=== PATIENT | female | born 1960 | race Caucasian/White ===

== ENCOUNTER 2016-06-16 10:53 | Emergency (ER) | payer MEDICARE, OTHER ==
[2016-06-16 11:02] VITALS: BP 116/75; PULSE 78; RESP 18; TEMP 97.4
--- NOTE | 2016-06-16 11:38 | ED ---
Upper Extremity HPI - General Chief Complaint: Extremity Injury, Upper Stated Complaint: Shoulder/Neck Pain Time Seen by Provider: 06/16/16 11:13 Source: patient, RN notes reviewed Mode of arrival: ambulatory Limitations: no limitations - History of Present Illness Initial Comments: 55-year-old female presents emergency Department chief complaint of neck and left shoulder pain. Patient states has been present last 3 weeks. Patient denies any trauma. Patient states she has increased pain when she looks up. Patient states she gets a shooting pain down into her left shoulder. Denies any weakness of her upper extremities. Denies chest pain, shortness breath, fever, chills. Denies any headache at this time. Denies any blurred vision. Patient states she has no history of chronic neck issues. She states that she did receive injections in the past from her neurologist she sees for chronic hip pain. Patient states she takes [place] 7.5 daily. Patient denies any rashes noted the region. Patient states that she does feels stiff. - Related Data Home Medications Medication Instructions Recorded Confirmed Diazepam [Valium] 5 mg PO BID 06/16/16 06/16/16 HYDROcodone/APAP 7.5-325MG [[place] 1 tab PO BID PRN 06/16/16 06/16/16 7.5-325] PARoxetine HCL [Paxil] 40 mg PO DAILY 06/16/16 06/16/16 carBAMazepine [carBAMazepine ER] 200 mg PO BID 06/16/16 06/16/16 traZODone HCL [Desyrel] 100 mg PO HS 06/16/16 06/16/16 Previous Rx's Medication Instructions Recorded methylPREDNISolone [Medrol Dose 4 mg PO DIRECTED #1 pack 06/16/16 Pack] Allergies Allergy/AdvReac Type Severity Reaction Status Date / Time No Known Allergies Allergy Verified 06/16/16 11:13 Review of Systems ROS Statement: Those systems with pertinent positive or pertinent negative responses have been documented in the HPI. ROS Other: All systems not noted in ROS Statement are negative. Past Medical History Past Medical History: Pneumonia Additional Past Medical History / Comment(s): kidney stones, History of Any Multi-Drug Resistant Organisms: None Reported Past Surgical History: Hysterectomy Additional Past Surgical History / Comment(s): fracture left foot, Past Psychological History: Anxiety, Bipolar, Depression Smoking Status: Current every day smoker Past Alcohol Use History: None Reported Past Drug Use History: Marijuana General Exam Limitations: no limitations General appearance: alert, in no apparent distress Head exam: Present: atraumatic, normocephalic, normal inspection Eye exam: Present: normal appearance, PERRL, EOMI. Absent: scleral icterus, conjunctival injection, periorbital swelling ENT exam: Present: normal exam, normal oropharynx, mucous membranes moist, TM's normal bilaterally, normal external ear exam Neck exam: Present: normal inspection, tenderness (Mild tenderness noted to left trapezius), full ROM (Pain with extension). Absent: meningismus, lymphadenopathy Respiratory exam: Present: normal lung sounds bilaterally. Absent: respiratory distress, wheezes, rales, rhonchi, stridor Cardiovascular Exam: Present: regular rate, normal rhythm, normal heart sounds. Absent: systolic murmur, diastolic murmur, rubs, gallop, clicks Extremities exam: Present: other (Left shoulder full range of motion, neurovascularly intact, nontender. Strength equal bilaterally pulses equal bilaterally rashes) Neurological exam: Present: alert, oriented X3, CN II-XII intact, reflexes normal. Absent: motor sensory deficit Course Vital Signs 06/16/16 11:00 Temperature 97.4 F L Pulse Rate 78 Respiratory 18 Rate Blood Pressure 116/75 O2 Sat by Pulse 100 Oximetry Medical Decision Making - Medical Decision Making 55-year-old female presented for 3 week history neck pain. Patient pain radiates to her left shoulder. Patient's pain is consistent with cervical radiculopathy. Patient's x-ray of the neck shows degenerative changes C6-C7 and some straightening noted consistent with muscle spasms. Patient will be discharged with Medrol Dosepak as she currently takes pain medication and Valium. Patient will follow-up with her neurologist. Return parameters were discussed. Disposition Clinical Impression: Cervical radiculopathy Disposition: HOME SELF-CARE Condition: Stable Instructions: Cervical Radiculopathy (ED) Additional Instructions: Please return to the Emergency Department if symptoms worsen or any other concerns. Prescriptions: methylPREDNISolone [Medrol Dose Pack] 4 mg PO DIRECTED #1 pack Time of Disposition: 12:11
--- NOTE | 2016-06-16 11:59 | XR ---
EXAMINATION TYPE: XR shoulder limited LT DATE OF EXAM: 06/16/2016 11:55 AM CLINICAL HISTORY: Left shoulder pain for a few days. TECHNIQUE: Two views of the left shoulder are obtained. COMPARISON: None. FINDINGS: There is no acute fracture/dislocation evident in the left shoulder. The acromioclavicula r and glenohumeral joint spaces appear within normal limits. The visualized ribs are intact and unre markable. IMPRESSION: There is no acute fracture or dislocation in the left shoulder.
--- NOTE | 2016-06-16 12:01 | XR ---
EXAMINATION TYPE: XR cervical spine comp DATE OF EXAM: 06/16/2016 11:55 AM TECHNIQUE: Frontal, lateral, oblique, and open mouth view of the cervical spine are obtained. HISTORY: Left-sided neck pain for a few days. COMPARISON: None FINDINGS: The cervical spine is visualized in its entirety from C1 thru the top of T1 level, it is s traightened in alignment without evidence of acute fracture or dislocation. The pre-vertebral soft t issue appears within normal limits. The C1-C2 articulation is within normal limits on the open mouth view. Vertebral body heights are maintained. There is mild disc space narrowing C6-C7 level with pro minent spur from the anterior inferior C6 vertebra. The oblique images are within normal limits. Over lying soft tissue is unremarkable. IMPRESSION: Straightening of cervical spine with degenerative changes C6-C7 level noted.
== END 2016-06-16 12:33 | disposition home or self-care (01) ==
LOC: EC 10:53
DX: M54.12 Radiculopathy, cervical region (principal); M25.512 Pain in left shoulder; F31.9 Bipolar disorder, unspecified; Z87.01 Personal history of pneumonia (recurrent); F17.200 Nicotine dependence, unspecified, uncomplicated; Z79.899 Other long term (current) drug therapy
CPT/HCPCS: 72050; 99283

== ENCOUNTER → 2016-11-17 | Outpatient (CLI) | payer MEDICARE, OTHER ==
--- NOTE | 2016-11-17 14:28 | XR ---
EXAMINATION TYPE: XR foot complete LT, XR ankle complete LT DATE OF EXAM: 11/17/2016 CLINICAL HISTORY: Left foot and ankle pain since fracture injury 8 years ago. TECHNIQUE: Frontal, lateral and oblique images of the left ankle and foot are obtained. COMPARISON: None. FINDINGS: There is no acute fracture/dislocation evident in the left ankle. The ankle mortise appea rs within normal limits. There is small superior calcaneal spur and tiny inferior calcaneal spur. Th e overlying soft tissue appears unremarkable. There is no acute fracture or dislocation evident in the left foot. The joint spaces in the left jose luis t are preserved. Unfused apophysis near proximal navicular bone, base of fifth metatarsal, and latera l cuboid bone are present. Overlying soft tissue is unremarkable. IMPRESSION: There is no significant finding seen to account for patient's symptoms.
== END | disposition home or self-care (01) ==
LOC: RADXRMAIN 14:03
PROVIDERS: ATTEND Physical Medicine & Rehabilitation
DX: M79.672 Pain in left foot (principal)

== ENCOUNTER → 2017-06-05 | Outpatient (CLI) | payer MEDICARE, OTHER ==
[2017-06-05 11:13] LABS: Basophils # (A) 0.1 k/uL (0-0.2); Basophils % (A) 1 %; Eosinophils # (A) 0.3 k/uL (0-0.7); Eosinophils % (A) 4 %; HCT 48.5 % (34.0-46.0); HGB 15.1 gm/dL (11.4-16.0); Lymphocytes # (A) 2.2 k/uL (1.0-4.8); Lymphocytes % (A) 35 %; MCH 29.4 pg (25.0-35.0); MCHC 31.1 g/dL (31.0-37.0); MCV 94.4 fL (80.0-100.0); Mean Platelet Volume 7.3; Monocytes # (A) 0.4 k/uL (0-1.0); Monocytes % (A) 7 %; Neutrophils # (A) 3.2 k/uL (1.3-7.7); Neutrophils % (A) 51 %; Platelet Count 288 k/uL (150-450); RBC 5.14 m/uL (3.80-5.40); RDW 13.9 % (11.5-15.5); WBC 6.2 k/uL (3.8-10.6)
[2017-06-05 11:23] LABS: ALT 43 U/L (9-52); AST 28 U/L (14-36); Alkaline Phosphatase 93 U/L (38-126); Anion Gap 8 mmol/L; Blood Urea Nitrogen 14 mg/dL (7-17); Carbamazepine (Tegretol) 6.5 ug/mL; Carbon Dioxide 30 mmol/L (22-30); Chloride 104 mmol/L (98-107); Cholesterol 323 mg/dL (<200); HDL Cholesterol 74 mg/dL (40-60); LDL Cholesterol,Calculated 213 mg/dL (0-99); Potassium 4.6 mmol/L (3.5-5.1); Sodium 142 mmol/L (137-145); Triglycerides 179 mg/dL (<150)
[2017-06-05 11:37] LABS: T4, Free (Free Thyroxine) 0.57 ng/dL (0.78-2.19)
[2017-06-05 16:58] LABS: Hemoglobin A1C 5.5 % (4.0-6.0)
== END | disposition home or self-care (01) ==
LOC: LABWHC1 10:19
PROVIDERS: ATTEND Psychiatry & Neurology Psychiatry
DX: E66.9 Obesity, unspecified (principal); R53.83 Other fatigue; F31.4 Bipolar disorder, current episode depressed, severe, without psychotic features; F41.8 Other specified anxiety disorders; Z79.899 Other long term (current) drug therapy
CPT/HCPCS: 36415; 80051; 80061; 80156; 82565; 83036; 84075; 84439; 84443; 84450; 84460; 84520; 85025

== ENCOUNTER 2017-06-26 20:05 | Emergency (ER) | payer MEDICARE, OTHER ==
[2017-06-26 20:34] VITALS: BP 131/88; PULSE 85; RESP 18; TEMP 99.7
[2017-06-26] MEDS ORDERED: DIAZEPAM 5 MG TAB PO STA (20:35)
--- NOTE | 2017-06-26 20:41 | ED ---
General Adult HPI - General Chief complaint: Recheck/Abnormal Lab/Rx Stated complaint: Palpatations Time Seen by Provider: 06/26/17 20:23 Source: patient, RN notes reviewed Mode of arrival: ambulatory Limitations: no limitations - History of Present Illness Initial comments: This is a 56-year-old female who states she did not Valium for many many years and ran out yesterday she comes in tonight complaining be very anxious to me on my exam she denies any fevers chills nausea vomiting sweats just shaking. She does have psychiatry appointment in July she states she switched insurances that she can get a specific psychiatrist she does not have an appointment however told next month she takes 5 mg 3 times a day. She denies any other complaints at this time he did complain some palpitations no overt chest pain shortness of breath however - Related Data Home Medications Medication Instructions Recorded Confirmed Diazepam [Valium] 5 mg PO DAILY PRN 06/16/16 04/20/17 PARoxetine HCL [Paxil] 40 mg PO DAILY 06/16/16 04/20/17 carBAMazepine [carBAMazepine ER] 200 mg PO BID 06/16/16 04/20/17 traZODone HCL [Desyrel] 100 mg PO HS 06/16/16 04/20/17 Cetirizine HCl [Zyrtec] 10 mg PO DAILY 04/20/17 04/20/17 HYDROcodone/APAP 10-325MG [[place] 1 tab PO BID PRN 04/20/17 04/20/17 10-325] Phentermine HCl [Adipex-P] 37.5 mg PO DAILY 04/20/17 04/20/17 Previous Rx's Medication Instructions Recorded Diazepam [Valium] 5 mg PO TID #42 tab 04/20/17 Diazepam [Valium] 5 mg PO TID #12 tab 06/26/17 Allergies Allergy/AdvReac Type Severity Reaction Status Date / Time No Known Allergies Allergy Verified 06/26/17 20:35 Review of Systems ROS Statement: Those systems with pertinent positive or pertinent negative responses have been documented in the HPI. ROS Other: All systems not noted in ROS Statement are negative. Past Medical History Past Medical History: Pneumonia Additional Past Medical History / Comment(s): kidney stones History of Any Multi-Drug Resistant Organisms: None Reported Past Surgical History: Hysterectomy Additional Past Surgical History / Comment(s): fracture left foot Past Psychological History: Anxiety, Bipolar, Depression Smoking Status: Current every day smoker Past Alcohol Use History: None Reported Past Drug Use History: Marijuana General Exam - General Exam Comments Initial Comments: This is a well-developed well-nourished awake alert oriented 3 female Limitations: no limitations General appearance: alert, in no apparent distress, anxious Head exam: Present: atraumatic, normocephalic, normal inspection Eye exam: Present: normal appearance, PERRL, EOMI. Absent: scleral icterus, conjunctival injection, periorbital swelling ENT exam: Present: normal exam, mucous membranes moist Neck exam: Present: normal inspection. Absent: tenderness, meningismus, lymphadenopathy Respiratory exam: Present: normal lung sounds bilaterally. Absent: respiratory distress, wheezes, rales, rhonchi, stridor Cardiovascular Exam: Present: regular rate, normal rhythm, normal heart sounds. Absent: systolic murmur, diastolic murmur, rubs, gallop, clicks GI/Abdominal exam: Absent: distended, tenderness, guarding, rebound, rigid Extremities exam: Present: normal inspection, full ROM, normal capillary refill. Absent: tenderness, pedal edema, joint swelling, calf tenderness Back exam: Present: full ROM Neurological exam: Present: alert, oriented X3, CN II-XII intact Psychiatric exam: Present: normal affect, anxious Skin exam: Present: warm, dry, intact, normal color. Absent: rash Course Vital Signs 06/26/17 20:25 Temperature 99.7 F H Pulse Rate 85 Respiratory 18 Rate Blood Pressure 131/88 O2 Sat by Pulse 96 Oximetry EKG Findings - EKG Results: EKG: interpreted by ERMD, sinus rhythm (Normal sinus rhythm of 84. Interval 140 QRS duration 80 QT since QTC of 360/434 st-t wave changes) Medical Decision Making - Medical Decision Making No further workup is indicated this time patient is demonstrating some evidence of withdrawal from Valium I did tell her that we cannot give her a lot of medication she'll get enough. Through the daily she is follow-up with her doctor and return when necessary Disposition Clinical Impression: Encounter for medication refill, Anxiety Disposition: HOME SELF-CARE Condition: Good Instructions: Anxiety (ED), Medicine Refill (ED) Prescriptions: Diazepam [Valium] 5 mg PO TID #12 tab Referrals: Nneka Ortiz MD [Primary Care Provider] - 1-2 days
== END 2017-06-26 20:57 | disposition home or self-care (01) ==
LOC: EC 20:05
DX: F41.9 Anxiety disorder, unspecified (principal); Z76.0 Encounter for issue of repeat prescription; R00.2 Palpitations; F31.9 Bipolar disorder, unspecified; F17.200 Nicotine dependence, unspecified, uncomplicated; Z79.899 Other long term (current) drug therapy
CPT/HCPCS: 93005; 99284

== ENCOUNTER 2017-08-18 14:20 | Emergency (ER) | payer MEDICARE, OTHER ==
[2017-08-18] MEDS ORDERED: KETOROLAC 30 MG/ML 1 ML VIAL IVP STA (15:07)
[2017-08-18] MEDS ORDERED: SODIUM CHLORIDE 0.9% 1,000 ML IV STA ×2 (15:07)
[2017-08-18] MEDS ORDERED: ORPHENADRINE 30 MG/ML 2 ML VIAL IVP STA (15:08)
--- NOTE | 2017-08-18 15:14 | ED ---
Lower Extremity Injury HPI - General Chief Complaint: Extremity Injury, Lower Stated Complaint: cannot stand up straight, back pain, leg pain Time Seen by Provider: 08/18/17 14:54 Source: patient, RN notes reviewed Mode of arrival: wheelchair Limitations: no limitations - History of Present Illness Initial Comments: This is a 56-year-old female who states she's had left SI joint area pain that radiates down her left leg for the past several days she states it's fairly severe she states it feels like some a stretching the area out she states is 9/ 10 severity she states she's been walking around on sure. Past 3 days because of the pain. She denies any specific injury or incident that may have precipitated this. 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 She denies any fevers chills sweats cough phlegm production dysuria hematuria she does state the pain seems to radiate down the leg feels like bubbles underneath her anterior lateral thigh and wrapping around to the superior aspect of the medial knee. No urinary or fecal incontinence. No loss of function to her upper or lower extremities. Patient is a smoker we did briefly discuss smoking cessation. She does smoke cigarettes. No other modifying factors at this time she does state that she was never diagnosed with heart or lung disease to this point. - Related Data Home Medications Medication Instructions Recorded Confirmed PARoxetine HCL [Paxil] 40 mg PO DAILY 06/16/16 08/18/17 carBAMazepine [carBAMazepine ER] 200 mg PO BID 06/16/16 08/18/17 traZODone HCL [Desyrel] 100 mg PO HS 06/16/16 08/18/17 Cetirizine HCl [Zyrtec] 10 mg PO DAILY 04/20/17 08/18/17 HYDROcodone/APAP 10-325MG [[place] 1 tab PO BID PRN 04/20/17 08/18/17 10-325] Atorvastatin Calcium [Lipitor] 10 mg PO HS 08/18/17 08/18/17 Previous Rx's Medication Instructions Recorded Diazepam [Valium] 5 mg PO TID #12 tab 06/26/17 Hydrocodone/Acetaminophen [[place] 1 each PO Q6HR PRN #12 tab 08/18/17 5-325] Ibuprofen 800 mg PO Q6HR PRN #20 tablet 08/18/17 methylPREDNISolone Dose Pack 4 mg PO DIRECTED #21 package 08/18/17 [Medrol Dose Pack] Allergies Allergy/AdvReac Type Severity Reaction Status Date / Time No Known Allergies Allergy Verified 08/18/17 14:48 Review of Systems ROS Statement: Those systems with pertinent positive or pertinent negative responses have been documented in the HPI. ROS Other: All systems not noted in ROS Statement are negative. Past Medical History Past Medical History: COPD, Hyperlipidemia, Pneumonia Additional Past Medical History / Comment(s): kidney stones History of Any Multi-Drug Resistant Organisms: None Reported Past Surgical History: Hysterectomy Additional Past Surgical History / Comment(s): fracture left foot Past Psychological History: Anxiety, Bipolar, Depression Smoking Status: Current every day smoker Past Alcohol Use History: None Reported Past Drug Use History: Marijuana General Exam - General Exam Comments Initial Comments: This is a well-developed well-nourished awake alert oriented 3 female Limitations: no limitations General appearance: alert, in no apparent distress Head exam: Present: atraumatic, normocephalic, normal inspection Eye exam: Present: normal appearance, PERRL, EOMI. Absent: scleral icterus, conjunctival injection, periorbital swelling ENT exam: Present: mucous membranes dry Neck exam: Present: normal inspection. Absent: tenderness, meningismus, lymphadenopathy Respiratory exam: Present: normal lung sounds bilaterally. Absent: respiratory distress, wheezes, rales, rhonchi, stridor Cardiovascular Exam: Present: regular rate, normal rhythm, normal heart sounds. Absent: systolic murmur, diastolic murmur, rubs, gallop, clicks GI/Abdominal exam: Present: soft, normal bowel sounds. Absent: distended, tenderness, guarding, rebound, rigid Extremities exam: Present: normal inspection, full ROM, normal capillary refill. Absent: tenderness, pedal edema, joint swelling, calf tenderness Back exam: Present: normal inspection, full ROM, muscle spasm, paraspinal tenderness (Tenderness palpation of the left SI joint region with some localized spasm noted. No spinous process tenderness no step-off or crepitation.). Absent: tenderness, CVA tenderness (R), CVA tenderness (L), vertebral tenderness Neurological exam: Present: alert, oriented X3, CN II-XII intact Psychiatric exam: Present: normal affect, normal mood Skin exam: Present: warm, dry, intact, normal color. Absent: rash Course Vital Signs 08/18/17 14:39 Temperature 98.5 F Pulse Rate 81 Respiratory 18 Rate Blood Pressure 128/68 O2 Sat by Pulse 95 Oximetry Medical Decision Making - Medical Decision Making I did discuss findings with the patient and her . Patient is feeling somewhat better we did have a long discussion regarding sciatica and low back pain. This isn't included exercises. She'll be placed on appropriate medication she is a follow-up with her doctor and return when necessary - Lab Data Result diagrams: 08/18/17 15:18 08/18/17 15:18 Lab Results 08/18/17 08/18/17 08/18/17 Range/Units 15:18 15:18 15:18 WBC 5.1 (3.8-10.6) k/uL RBC 4.82 (3.80-5.40) m/uL Hgb 14.7 (11.4-16.0) gm/dL Hct 41.8 (34.0-46.0) % MCV 86.7 (80.0-100.0) fL MCH 30.6 (25.0-35.0) pg MCHC 35.3 (31.0-37.0) g/dL RDW 12.0 (11.5-15.5) % Plt Count 282 (150-450) k/uL Neutrophils % 51 % Lymphocytes % 36 % Monocytes % 7 % Eosinophils % 3 % Basophils % 1 % Neutrophils # 2.6 (1.3-7.7) k/uL Lymphocytes # 1.8 (1.0-4.8) k/uL Monocytes # 0.4 (0-1.0) k/uL Eosinophils # 0.2 (0-0.7) k/uL Basophils # 0.0 (0-0.2) k/uL Sodium 141 (137-145) mmol/L Potassium 4.2 (3.5-5.1) mmol/L Chloride 103 (98-107) mmol/L Carbon Dioxide 26 (22-30) mmol/L Anion Gap 12 mmol/L BUN 15 (7-17) mg/dL Creatinine 0.60 (0.52-1.04) mg/dL Est GFR (CKD-EPI)AfAm >90 (>60 ml/min/1.73 sqM) Est GFR (CKD-EPI)NonAf >90 (>60 ml/min/1.73 sqM) Glucose 92 (74-99) mg/dL Calcium 9.3 (8.4-10.2) mg/dL Magnesium 1.9 (1.6-2.3) mg/dL Total Bilirubin 0.2 (0.2-1.3) mg/dL AST 21 (14-36) U/L ALT 27 (9-52) U/L Alkaline Phosphatase 99 (38-126) U/L Total Creatine Kinase 51 (30-135) U/L CK-MB (CK-2) 1.0 (0.0-2.4) ng/mL CK-MB (CK-2) Rel Index 2.0 Total Protein 6.8 (6.3-8.2) g/dL Albumin 4.2 (3.5-5.0) g/dL - Radiology Data Radiology results: report reviewed (I did review the imaging and report some degenerative changes noted no acute findings however.), image reviewed Disposition Clinical Impression: Sciatica, Sacroiliitis Disposition: HOME SELF-CARE Condition: Good Instructions: Lower Back Exercises (ED), Sciatica (ED), Sacroiliitis (ED) Prescriptions: Hydrocodone/Acetaminophen [[place] 5-325] 1 each PO Q6HR PRN #12 tab PRN Reason: Pain Ibuprofen 800 mg PO Q6HR PRN #20 tablet PRN Reason: Pain methylPREDNISolone Dose Pack [Medrol Dose Pack] 4 mg PO DIRECTED #21 package Referrals: Nneka Ortiz MD [Primary Care Provider] - 1-2 days
[2017-08-18 15:29] LABS: Basophils % (A) 1 %; Eosinophils # (A) 0.2 k/uL (0-0.7); Eosinophils % (A) 3 %; HCT 41.8 % (34.0-46.0); HGB 14.7 gm/dL (11.4-16.0); Lymphocytes # (A) 1.8 k/uL (1.0-4.8); Lymphocytes % (A) 36 %; MCH 30.6 pg (25.0-35.0); MCHC 35.3 g/dL (31.0-37.0); MCV 86.7 fL (80.0-100.0); Mean Platelet Volume 6.8; Monocytes # (A) 0.4 k/uL (0-1.0); Monocytes % (A) 7 %; Neutrophils # (A) 2.6 k/uL (1.3-7.7); Neutrophils % (A) 51 %; Platelet Count 282 k/uL (150-450); RBC 4.82 m/uL (3.80-5.40); WBC 5.1 k/uL (3.8-10.6)
[2017-08-18 15:40] LABS: ALT 27 U/L (9-52); AST 21 U/L (14-36); Albumin 4.2 g/dL (3.5-5.0); Alkaline Phosphatase 99 U/L (38-126); Anion Gap 12 mmol/L; Blood Urea Nitrogen 15 mg/dL (7-17); Calcium 9.3 mg/dL (8.4-10.2); Carbon Dioxide 26 mmol/L (22-30); Chloride 103 mmol/L (98-107); Glucose 92 mg/dL (74-99); Magnesium 1.9 mg/dL (1.6-2.3); Potassium 4.2 mmol/L (3.5-5.1); Sodium 141 mmol/L (137-145); Total Bilirubin 0.2 mg/dL (0.2-1.3); Total Protein 6.8 g/dL (6.3-8.2)
--- NOTE | 2017-08-18 15:40 | XR ---
EXAMINATION TYPE: XR lumbosacral spine min 4V DATE OF EXAM: 08/18/2017 CLINICAL HISTORY: pain COMPARISON: NONE TECHNIQUE: Frontal, lateral, and oblique images of the lumbar spine are obtained. FINDINGS: There are 5 lumbar type vertebral bodies identified. The lumbar spine shows satisfactory alignment without evidence of acute fracture or dislocation. Vertebral body heights are within normal limits. Disc spaces are well preserved. The overlying soft tissue appears unremarkable. IMPRESSION: No acute fracture or dislocation is seen in the lumbar spine.ICD 10 NO FRACTURE, INITIAL EVALUATION
[2017-08-18] MEDS ORDERED: methylPREDNISolone SOD SUCCI 125 MG/2 ML VIAL IV STA (17:23)
[2017-08-18 17:51] VITALS: BP 109/57; PULSE 68; RESP 16
[2017-08-18 18:00] VITALS: TEMP 98.2
== END 2017-08-18 17:55 | disposition home or self-care (01) ==
LOC: EC 14:20
DX: M46.1 Sacroiliitis, not elsewhere classified (principal); M54.32 Sciatica, left side; E78.5 Hyperlipidemia, unspecified; F31.9 Bipolar disorder, unspecified; F41.9 Anxiety disorder, unspecified; F17.210 Nicotine dependence, cigarettes, uncomplicated; Z79.899 Other long term (current) drug therapy
CPT/HCPCS: 99283; 96374; 96375 ×2; 96361 ×2; 36415; 80053; 82550; 82553; 83735; 85025; 72110; J2360; J2930; J1885

== ENCOUNTER 2018-04-16 07:56 | Emergency (ER) | payer MEDICARE, OTHER ==
[2018-04-16 08:02] VITALS: BP 146/78; PULSE 78; RESP 18; TEMP 97.9
[2018-04-16] MEDS ORDERED: KETOROLAC 60 MG/2 ML VIAL IM STA (08:11)
--- NOTE | 2018-04-16 08:16 | ED ---
General Adult HPI - General Chief complaint: Extremity Injury, Upper Stated complaint: lt hand numbness Time Seen by Provider: 04/16/18 08:00 Source: patient, RN notes reviewed Mode of arrival: ambulatory Limitations: no limitations - History of Present Illness Initial comments: This is a 57-year-old female who presents emergency Department complaining of 3 months of left arm pain and left hand tingling. When I asked the patient if her hand was numb because that is how the nurse's note was documented she says she can feel everything normally but her hand is tingly when she wakes up in the morning as if it is asleep. Patient states the symptoms have worsened over the last 2 weeks. Patient states she always wakes up with some tingling in her hand and pain in her arm but after she takes her [place] the symptoms resolved and she is able to function fully she does play guitar still once the pain goes away. Patient states she has no neck pain. Patient states she has already been seen at our hospital as well as [facility] and they x-rayed her and found no broken bones. Patient states she's had no other injury since the last fall. Patient states she just came in today was and wondering if she can get a anti- inflammatory shot. Patient denies any headache patient denies any actual numbness or any weakness after she wakes up. Patient states every morning since she has been injured she has woken up with some degree of these symptoms. Patient states every day they resolve and she's finding the rest of the day. - Related Data Home Medications Medication Instructions Recorded Confirmed PARoxetine HCL [Paxil] 40 mg PO DAILY 06/16/16 08/18/17 carBAMazepine [carBAMazepine ER] 200 mg PO BID 06/16/16 08/18/17 traZODone HCL [Desyrel] 100 mg PO HS 06/16/16 08/18/17 Cetirizine HCl [Zyrtec] 10 mg PO DAILY 04/20/17 08/18/17 HYDROcodone/APAP 10-325MG [[place] 1 tab PO BID PRN 04/20/17 08/18/17 10-325] Atorvastatin Calcium [Lipitor] 10 mg PO HS 08/18/17 08/18/17 Previous Rx's Medication Instructions Recorded Diazepam [Valium] 5 mg PO TID #12 tab 06/26/17 Hydrocodone/Acetaminophen [[place] 1 each PO Q6HR PRN #12 tab 08/18/17 5-325] Ibuprofen 800 mg PO Q6HR PRN #20 tablet 08/18/17 methylPREDNISolone Dose Pack 4 mg PO DIRECTED #21 package 08/18/17 [Medrol Dose Pack] Allergies Allergy/AdvReac Type Severity Reaction Status Date / Time amoxicillin [From Augmentin] Allergy Unknown Verified 04/16/18 07:58 clavulanic acid Allergy Unknown Verified 04/16/18 07:58 [From Augmentin] Review of Systems ROS Statement: Those systems with pertinent positive or pertinent negative responses have been documented in the HPI. ROS Other: All systems not noted in ROS Statement are negative. Past Medical History Past Medical History: COPD, Hyperlipidemia, Pneumonia Additional Past Medical History / Comment(s): kidney stones History of Any Multi-Drug Resistant Organisms: None Reported Past Surgical History: Hysterectomy Additional Past Surgical History / Comment(s): fracture left foot Past Psychological History: Anxiety, Bipolar, Depression Smoking Status: Current every day smoker Past Alcohol Use History: None Reported Past Drug Use History: Marijuana General Exam - General Exam Comments Initial Comments: GENERAL: Patient is well-developed and well-nourished. Patient is nontoxic and well- hydrated and is in no acute distress. ENT: Neck is soft and supple. No significant lymphadenopathy is noted. Neck has full range of motion without eliciting any pain. EYES: The sclera were anicteric and conjunctiva were pink and moist. Extraocular movements were intact and pupils were equal round and reactive to light. Eyelids were unremarkable. PULMONARY: Unlabored respirations. Good breath sounds bilaterally. No audible rales rhonchi or wheezing was noted. CARDIOVASCULAR: There is a regular rate and rhythm without any murmurs gallops or rubs. SKIN: Skin is clear with no lesions or rashes and otherwise unremarkable. NEUROLOGIC: Patient is alert and oriented x3. Cranial nerves II through XII are grossly intact. Motor and sensory are also intact. Patient has no objective deficit at this time. MUSCULOSKELETAL: Normal extremities with adequate strength and full range of motion. No lower extremity swelling or edema. No calf tenderness. PSYCHIATRIC: Normal psychiatric evaluation. Limitations: no limitations Course Vital Signs 04/16/18 07:58 Temperature 97.9 F Pulse Rate 78 Respiratory 18 Rate Blood Pressure 146/78 O2 Sat by Pulse 100 Oximetry Medical Decision Making - Medical Decision Making Patient states she has a neurologist appointment on the but she is going to call today to try to make it sooner. Disposition Clinical Impression: Arm pain, chronic Disposition: HOME SELF-CARE Condition: Good Additional Instructions: Patient should follow-up with her neurologist as soon as possible. Is patient prescribed a controlled substance at d/c from ED?: No Referrals: Nneka Ortiz MD [Primary Care Provider] - 1-2 days Time of Disposition: 08:15
== END 2018-04-16 08:50 | disposition home or self-care (01) ==
LOC: EC 07:56
DX: G89.29 Other chronic pain (principal); M79.602 Pain in left arm; R20.0 Anesthesia of skin; R20.2 Paresthesia of skin; E78.5 Hyperlipidemia, unspecified; F41.9 Anxiety disorder, unspecified; F32.9 Major depressive disorder, single episode, unspecified; F17.200 Nicotine dependence, unspecified, uncomplicated; Z79.899 Other long term (current) drug therapy; Z88.0 Allergy status to penicillin
CPT/HCPCS: 99283; 96372; J1885

== ENCOUNTER → 2018-08-23 | Outpatient (CLI) | payer MEDICARE, OTHER ==
--- NOTE | 2018-08-23 12:14 | MR ---
EXAMINATION TYPE: MR shoulder LT wo con DATE OF EXAM: 08/23/2018 COMPARISON: Outside left shoulder x-ray August 10, 2018. HISTORY: Pain in left shoulder per order. Constant pain causing numbness in hands for 5 months per pa tient. TECHNIQUE: Multiplanar, multisequence imaging of the left shoulder is performed without contrast. FINDINGS: Rotator Cuff: Distal supraspinatus and infraspinatus tendons are intact. Distal subscapularis tendons are not well visualized but presumed intact. Rotator cuff muscle bulk is preserved. Acromioclavicular Joint: Moderate to severe narrowing with moderate capsular hypertrophy and spurring causing loss of underlying fat plane. Distal acromion morphology is unremarkable. Glenohumeral Joint: Mild narrowing with small to moderate glenohumeral joint effusion. No significant spurring. Labrum: Superior labrum shows blunting and increased signal coronal image 13 consistent with degenera tive tear. Biceps Tendon: The long head of biceps is in normal location within bicipital groove. Surrounding flu id signal is present axial image 10. Intracapsular portion shows central increased signal seen best s agittal images 10 through 17. Bone marrow signal: Some heterogeneous increased T2 signal acromioclavicular joint is noted. Other: No additional significant abnormality is appreciated. IMPRESSION: 1. No rotator cuff tear. 2. High-grade partial tear/tendinosis intracapsular portion of the long head of biceps tendon. There is focal moderate Tenosynovitis of the proximal extracapsular portion. 3. Moderate to advanced AC joint arthropathy with evidence of underlying impingement and acute inflam mation, correlate clinically.
== END | disposition home or self-care (01) ==
LOC: RADMRIMAIN 10:49
PROVIDERS: ATTEND Orthopaedic Surgery
DX: M19.012 Primary osteoarthritis, left shoulder (principal); S46.112A Strain of muscle, fascia and tendon of long head of biceps, left arm, initial encounter; M65.9 Synovitis and tenosynovitis, unspecified

== ENCOUNTER → 2019-01-03 | Outpatient (CLI) | payer MEDICARE, OTHER ==
[2019-01-03 13:09] VITALS: BP 131/71; PULSE 85; RESP 18
--- NOTE | 2019-01-03 14:22 | P.PAINCN ---
History of Present Illness - Reason for Consult Consult date: 01/03/19 - History of Present Illness Stumps and is a 58-year-old female who presents to our clinic with left shoulder pain primarily. She states that 80% of her pain is in her left shoulder in 20% of her pain is in the right shoulder. This started around 4 months ago, she has not had any major traumas since then, however she does remember a fall which may have precipitated her injury. She states that her shoulder pain is worse in the morning it's better after she takes her medications. She does have some morning stiffness, she has not seen a dairy manufacturing technologist. In terms of her pain sometimes pain radiates down her shoulders into the bilateral fingertips. She is not have had a cervical MRI. She does play the guitar which worsens her pain. She does have a left shoulder MRI did not done which showed no rotator cuff tear on 08/23/2018. She is prescribed opiates and Valium by an outside clinic, we are not writing her medications. Past Medical History Past Medical History: COPD, Hyperlipidemia, Musculoskeletal Disorder, Osteoarthritis (OA), Pneumonia Additional Past Medical History / Comment(s): kidney stones History of Any Multi-Drug Resistant Organisms: None Reported Past Surgical History: Hysterectomy Additional Past Surgical History / Comment(s): fracture left foot Past Anesthesia/Blood Transfusion Reactions: No Reported Reaction Smoking Status: Current every day smoker Medications and Allergies Home Medications Medication Instructions Recorded Confirmed Type PARoxetine HCL [Paxil] 40 mg PO DAILY 06/16/16 01/03/19 History carBAMazepine [carBAMazepine ER] 200 mg PO BID 06/16/16 01/03/19 History traZODone HCL [Desyrel] 100 mg PO HS PRN 06/16/16 01/03/19 History Atorvastatin Calcium [Lipitor] 10 mg PO HS 08/18/17 01/03/19 History Diazepam [Valium] 5 mg PO DAILY 04/16/18 01/03/19 History HYDROcodone/APAP 10-325MG [Renovo 1 tab PO QID 12/06/18 01/03/19 History 10-325] Loratadine [Claritin] 10 mg PO DAILY 12/06/18 01/03/19 History Meclizine [Antivert] 25 mg PO BID PRN 12/06/18 01/03/19 History Ezetimibe/Simvastatin 1 tab PO HS 01/03/19 01/03/19 History [Ezetimibe-Simvastatin 10-40 mg] Allergies Allergy/AdvReac Type Severity Reaction Status Date / Time amoxicillin [From Augmentin] Allergy Unknown Verified 01/03/19 13:01 clavulanic acid Allergy Unknown Verified 01/03/19 13:01 [From Augmentin] Physical Exam Vitals: Vital Signs Pulse Resp BP Pulse Ox 01/03/19 13:06 85 18 131/71 97 Intake and Output 01/02/19 01/03/19 01/03/19 22:59 06:59 14:59 Other: Weight 58.967 kg Vital Signs: Reviewed in EMR GENERAL: Well appearing, in no acute distress, PSYCH: Mood and affect is appropriate. Awake, alert, and oriented SKIN: Skin color, texture, turgor normal, no rashes or lesions HEENT: Normocephalic, atraumatic. EOM intact CV: No pedal edema RESP: Respirations are unlabored, no audible wheezing GI: Abdomen non-distended MUSCULOSKELETAL: Full strength in upper extremities bilaterally. Neer's caulking's and empty can tests were negative. She did have multiple trigger points in the trapezius and supraspinatus areas. Neck: Some tenderness to palpation over cervical paraspinals. . No pain with neck flexion, extension, or lateral flexion. No obvious deformity or signs of trauma. Normal cervical lordotic curve and normal cervical spine range of motion Extremities: Peripheral joint ROM is full and pain free without obvious instability or laxity in all four extremities. No edema or skin discolorations noted. Gait: Gait is anantalgic NEUR: Bilateral upper and lower extremity coordination and muscle stretch reflexes are physiologic and symmetric. No loss of sensation is noted. Cranial nerves are grossly intact. Results Comments: MRI of her left shoulder from 08/23/2018 reviewed: There is no rotator cuff tear Assessment and Plan Assessment: Assessment: 1. Myofascial pain in the trapezius and supraspinatus area 2. Potential cervical radicular pain 3. Morning stiffness which has not been investigated. This is most likely related to her opiate use. As she just cannot take doses while she is sleeping her pain is worse in the morning. However if this continues to be in an issue would consider rheumatology consult. 4. Chronic opiate use Plan: 1. Explanation: Opioid and psychological risk scores were reviewed. Diagnoses, prognoses, and multiple treatment options including but not limited to physical therapy, interventional therapies, adjuvant medical therapies, narcotic medication therapies, and surgery were discussed with the patient and all questions were answered to the patient's satisfaction. 2. Opioid agreement: None 3. Counseling: The patient was instructed on the importance of visual therapy and stretching 4. Procedures: This point we will pursue a trigger point injections, given an element of myofascial pain. Given that she has symptoms that radiate down to the bilateral fingertips there is a possibility that she does have some cervical radicular pain. However we'll deferred cervical epidural until she has a cervical MRI completed. 5. Consultations: She was given a referral for physical therapy. Can consider rheumatology consult in the future. 6. Investigations: Cervical MRI was ordered 7. Medications: When necessary not managing her opiates 8. Disposition: Were trigger point injections in the cervical paraspinals, trapezius, and supraspinatus areas , PQRS Measure Charge Sheet PQRS Narrative: Smoking Status Current every day smoker Blood Pressure 131/71 Pain Intensity [Bilateral 8 Shoulder] Scale Used Numeric (1 - 10) Hx Alcohol Use (MH) No Home Medications: Ambulatory Orders PARoxetine HCL [Paxil] 40 mg PO DAILY 06/16/16 carBAMazepine [carBAMazepine ER] 200 mg PO BID 06/16/16 traZODone HCL [Desyrel] 100 mg PO HS PRN 06/16/16 Atorvastatin Calcium [Lipitor] 10 mg PO HS 08/18/17 Diazepam [Valium] 5 mg PO DAILY 04/16/18 HYDROcodone/APAP 10-325MG [Renovo 10-325] 1 tab PO QID 12/06/18 Loratadine [Claritin] 10 mg PO DAILY 12/06/18 Meclizine [Antivert] 25 mg PO BID PRN 12/06/18 Ezetimibe/Simvastatin [Ezetimibe-Simvastatin 10-40 mg] 1 tab PO HS 01/03/19
== END | disposition home or self-care (01) ==
LOC: PNWHC3 12:55
PROVIDERS: ATTEND Student in an Organized Health Care Education/Training Program
DX: M79.18 Myalgia, other site (principal); M54.2 Cervicalgia; F17.200 Nicotine dependence, unspecified, uncomplicated; Z79.891 Long term (current) use of opiate analgesic; Z79.899 Other long term (current) drug therapy; Z88.0 Allergy status to penicillin
CPT/HCPCS: 99211

== ENCOUNTER 2019-01-15 07:49 | Day surgery (SDC) | payer MEDICARE, OTHER ==
[2019-01-10 15:06] VITALS: BMI 23.0
[~2019-01-15 07:49] MED LIST: LACTATED RINGERS 1,000 ML IV SCH
[2019-01-15 08:04] VITALS: RESP 16; TEMP 97.6
--- NOTE | 2019-01-15 08:53 | P.PCN ---
Date of Procedure: 01/15/19 Description of Procedure: PROCEDURE: Left intraarticular shoulder joint injection with ultrasound PREOPERATIVE DIAGNOSIS: Left shoulder osteoarthritis. POSTOPERATIVE DIAGNOSIS: Left shoulder osteoarthritis. SURGEON: Dio Vazquez MD EBL: None. COMPLICATIONS: None. IV FLUIDS: 100 ml of Normal Saline PROCEDURE INDICATION: Left shoulder pain secondary to osteoarthritis. PROCEDURE DESCRIPTION: The patient was seen and identified in the preoperative area. Risks, benefits, complications, and alternatives were discussed with the patient. The patient agreed to proceed with the procedure and signed the consent. The patient was placed in the prone position on the procedure table and the left shoulder was prepped and draped in the usual sterile fashion. We used sterile gloves for the procedure. The medial joint space was identified by ultrasound. Block solution was prepared with 40 mg of Kenalog in 9 mL of 0.5% ropivacaine preservative-free. A 25-gauge needle was advanced through the aforementioned site into the intraarticular space, and after negative aspiration, 5 mL of block solution was injected. Skin was cleansed, and bandage was applied. DISPOSITION / PLANS: The patient was taken back to recovery room in a stable position. . Patient was discharged from the recovery room, accompanied by an adult, after meeting discharge criteria. Home discharge instructions were given to the patient. The patient was reexamined prior to discharge. The patient will schedule a follow up visit in the clinic in 2-4 weeks. Description of procedure: Trigger point injection of left trapezius and supraspinatus muscles under ultrasound guidance Preoperative Diagnosis: myofascial pain syndrome of supraspinatus and trapezius muscles Postoperative diagnosis: Same Surgeon: Dio Vazquez MD Indications for procedure: This is a 58-year-old patient with myofascial pain and palpable trigger points in trapezius and supraspinatus muscles. The patient consents for an injection after an explanation of risks including but not limited to bleeding and inf ection, benefits, and alternatives and the patient has signed a consent form indicating understanding of all of them. Description of procedure: After informed consent was obtained the patient's back was sterilely prepped in the usual fashion with ChloraPrep. Trapezius and supraspinatus trigger points were identified via palpation and also with the use of ultrasound guidance. Each trigger point was injected with a 25-gauge half inch needle, a solution consisting of 20 mg of Kenalog and 4 ML's of 0.5% ropivacaine. Needle was directed under ultrasound guidance in plain to the muscle plane, after negative aspiration 1 mL was injected with adequate spread under ultrasound. The patient's vital signs were stable afterwards and the procedure was tolerated well. Patient was discharged home with follow-up instructions.
[2019-01-15 08:54] VITALS: BP 107/70; PULSE 64
== END 2019-01-15 08:58 | disposition home or self-care (01) ==
LOC: ORPAIN 07:49
PROVIDERS: ATTEND Anesthesiology
DX: M19.012 Primary osteoarthritis, left shoulder (principal); M79.18 Myalgia, other site
CPT/HCPCS: 20611; 20552; J3301; 20553

== ENCOUNTER → 2019-01-28 | Outpatient (CLI) | payer MEDICARE, OTHER ==
--- NOTE | 2019-01-28 21:40 | MR ---
EXAMINATION TYPE: MR cervical spine wo con DATE OF EXAM: 01/28/2019 COMPARISON: None HISTORY: Left shoulder and arm pain, left hand numbness TECHNIQUE: Multiplanar, multisequence images of the cervical spine were acquired. Cervical vertebra have normal spacing and alignment. There is a small posterior minimal disc bulge at C5-6 C6-7 without encroachment on the spinal canal. There is mild anterior disc herniation at C6-7. There is no cervical paraspinal mass. Posterior elements are intact. Cervical spinal cord has normal signal pattern. There is no edema. Brainstem appears normal. There is no evidence of cervical spinal stenosis. There is no sign of any neural foraminal impingement. IMPRESSION: Minor degenerative disc changes at C5-6 C6-7 no cervical spinal stenosis. No fracture.
== END | disposition home or self-care (01) ==
LOC: RADMRIMAIN 20:00
PROVIDERS: ATTEND Student in an Organized Health Care Education/Training Program
DX: M47.812 Spondylosis without myelopathy or radiculopathy, cervical region (principal); M25.512 Pain in left shoulder
CPT/HCPCS: 72141

== ENCOUNTER → 2019-02-12 | Outpatient (CLI) | payer MEDICARE, OTHER ==
[2019-02-12 12:44] VITALS: BP 119/70; PULSE 80; RESP 18
--- NOTE | 2019-02-12 15:09 | P.PAINPG ---
Subjective Progress Note Date: 02/12/19 Mrs. Solorio is a 58-year-old female with myofascial pain in the left shoulder area. She presents for follow-up a month after her left trapezius, cervical paraspinal, and supraspinatus trigger point injection along with a shoulder injection with steroid. She states she had excellent pain relief, furthermore the tingling even down to her fingertips improved however after playing the guitar pain returned yesterday. Thus she is interested in another procedure. Her cervical MRI was reviewed today, which did not show any obvious areas which would cause cervical radicular pain. Otherwise she continues to be prescribed opiates and benzodiazepines from an outside clinic. Objective - Vital Signs Vital signs: Vital Signs Temp Pulse 80 02/12/19 12:39 Resp 18 02/12/19 12:39 BP 119/70 02/12/19 12:39 Pulse Ox 98 02/12/19 12:39 - Exam Vital Signs: Reviewed in EMR GENERAL: Well appearing, in no acute distress, PSYCH: Mood and affect is appropriate. Awake, alert, and oriented SKIN: Skin color, texture, turgor normal, no rashes or lesions HEENT: Normocephalic, atraumatic. EOM intact CV: No pedal edema RESP: Respirations are unlabored, no audible wheezing GI: Abdomen non-distended MUSCULOSKELETAL: Bilateral upper and lower extremity strength is normal and symmetric. No atrophy or tone abnormalities are noted. Neck: She does have pain to palpation in the left cervical paraspinal, trapezius, supraspinatus areas. Both active and passive range of motion with her left shoulder is painful for Gait: Gait is anantalgic NEUR: No loss of sensation is noted. Cranial nerves are grossly intact. Assessment and Plan Assessment: Assessment: 1. Left shoulder myofascial pain 2. Chronic opiate and benzodiazepine use 3. Left shoulder pain Plan: 1. Explanation: I explained to her that she received a fair amount of steroids, the last procedure she received 60 mg of Kenalog. Thus I would not want to perform a procedure on her right away, my preference would be to wait another 2 months. However she would like to have the procedure sooner, thus we will schedule the procedure to 4 weeks. She is worried about the weight gain with steroids. 2. Opioid agreement: None 3. Counseling: She was instructed to stay active 4. Procedures: Repeat left cervical paraspinal, supraspinatus, trapezius trigger point injections, left shoulder injection 5. Consultations: None 6. Investigations: Cervical MRI reviewed today 7. Medications: We are not writing her medications 8. Disposition: Procedure in 4 weeks , PQRS Measure Charge Sheet Measure #226: Tobacco Use: Screen & Cessation Intervention: Pt screened for tobacco use AND intervention given Measure #111: Pneumonia Vaccination: Pneumococcal vaccine NOT administered or previously given Measure #47: Advance Care Plan: Advance care planning discussed & documented, pt chose/unable to give Measure #412: Opioid Treatment Agreement: No documentation of signed opioid tr eatment agreement Measure #408: Opioid Therapy Follow-up Evaluation: Patient had NO f/u eval minimum every 3 months during opioid therapy Measure #131: Pain Assessment & Follow-up: Pain positive & plan documented, Follow-up scheduled Measure #431: Unhealthy Alcohol Use Preventative Care & Scrn: Patient not identified as an unhealthy alcohol user PQRS Narrative: Smoking Status Current every day smoker Blood Pressure 119/70 Pain Intensity [Lower Back] 5 Pain Intensity [Left Shoulder] 6 Scale Used Numeric (1 - 10) Hx Alcohol Use (MH) No Home Medications: Ambulatory Orders PARoxetine HCL [Paxil] 40 mg PO DAILY 06/16/16 carBAMazepine [carBAMazepine ER] 200 mg PO BID 06/16/16 traZODone HCL [Desyrel] 100 mg PO HS PRN 06/16/16 Diazepam [Valium] 5 mg PO DAILY 04/16/18 HYDROcodone/APAP 10-325MG [[place]erson 10-325] 1 tab PO QID 12/06/18 Loratadine [Claritin] 10 mg PO DAILY 12/06/18 Meclizine [Antivert] 25 mg PO BID PRN 12/06/18 Ezetimibe/Simvastatin [Ezetimibe-Simvastatin 10-40 mg] 1 tab PO HS 01/03/19 Controlled Substance Measures - Controlled Substance Measures Is patient prescribed a controlled substance at discharge?: No
== END ==
LOC: PNWHC3 12:14
PROVIDERS: ATTEND Student in an Organized Health Care Education/Training Program
DX: M79.18 Myalgia, other site (principal); M25.512 Pain in left shoulder; F17.200 Nicotine dependence, unspecified, uncomplicated; Z79.899 Other long term (current) drug therapy; Z79.891 Long term (current) use of opiate analgesic
CPT/HCPCS: 99211

== ENCOUNTER 2019-03-12 08:28 | Day surgery (SDC) | payer MEDICARE, OTHER ==
[2019-03-08 13:26] VITALS: BMI 22.1
[2019-03-12 08:58] VITALS: TEMP 97.3
--- NOTE | 2019-03-12 09:39 | P.PCN ---
Date of Procedure: 03/12/19 Procedure(s) Performed: Procedure=1- left shoulder joints steroid injection under fluoroscopy guidance (fluoroscopy image stored on file in the radiology Department ) 2-trigger point injection on the left side trapezius muscle and left paraspinal muscles total of 3 trigger point injected Preoperative diagnosis= 1-left shoulder arthralgia. 2-myofascial pain syndrome left side trapezius and paraspinal muscles Postoperative diagnosis= same as the preoperative diagnosis Complication = none Condition= stable Anesthesia= none. Indication for the procedure= patient complaining of left side neck and left shoulder pain , she failed conservative treatment Description of the procedure= procedure risk and benefits discussed with the patient, including but not limited, risk of infection and bleeding, and ALLERGIC reaction to the medication and not complete pain relief and patient agreed with the preceding patient taken to the operating room, placed in prone position or standard monitors applied to the patient then after induction of anesthesia back prepped with chlorhexidine 3 times , Then under strict sterile technique, first I did the left shoulder joint the which was identified under fluoroscopy guidance been local infiltration of the skin and subcu interstitial with lidocaine 1% then 22-gauge Quincke Needle advanced slowly under fluoroscopy and placed in the left shoulder joint needle placement confirmed with AP and oblique and lateral view and after appropriate needle placement confirmed with the injection of Isovue 200 one mL showed that intra-articular ,and after negative aspiration, or heme , then Ropivacaine 0.5% 4 mL, and 40 mg of Depo-Medrol mixed together and injected in the right sacroiliac joint after negative aspiration patient tolerated the procedure well without any complication. Then the trigger point which was identified in the preop holding area each on the trigger point injected with ropivacaine 0.5% 2 mL injected after negative aspiration and there was no paresthesia during the injection using 25-gauge needle, total of 3 trigger point injected on the left side trapezius muscles on the left side paraspinal muscles, tolerated the procedure well without any complications
[2019-03-12 09:42] VITALS: RESP 16
[2019-03-12 09:52] VITALS: BP 103/57; PULSE 68
--- NOTE | 2019-03-12 09:53 | FL ---
Fluoroscopy HISTORY: Pain 1 seconds fluoroscopy time supplied to the referring clinician. 1 intraoperative C-arm images docume nt the procedure. See dictated report from anesthesia.
== END 2019-03-12 10:10 | disposition home or self-care (01) ==
LOC: ORPAIN 08:28
PROVIDERS: ATTEND Specialist
DX: M79.18 Myalgia, other site (principal); M25.512 Pain in left shoulder; Z88.0 Allergy status to penicillin; I10 Essential (primary) hypertension; J44.9 Chronic obstructive pulmonary disease, unspecified; Z90.710 Acquired absence of both cervix and uterus
CPT/HCPCS: 20553; 20610; J1030; Q9966

== ENCOUNTER → 2019-04-16 | Outpatient (CLI) | payer MEDICARE, OTHER ==
[2019-04-16 14:33] VITALS: BP 115/75; PULSE 86; RESP 16
--- NOTE | 2019-04-17 14:55 | P.PN ---
Subjective Progress Note Date: 04/16/19 This is a follow-up visit for this 58-year-old female with myofascial pain in the left side neck and left shoulder pain area. She presents for follow-up a month after her left trapezius, cervical paraspinal, and supraspinatus trigger point injection along with a shoulder injection with steroid. She states she had excellent pain relief, furthermore the tingling even down to her fingertips improved however after playing the guitar pain returned yesterday. Thus she is interested in another procedure. Her cervical MRI was reviewed today, which did not show any obvious areas which would cause cervical radicular pain. Otherwise she continues to be prescribed opiates and benzodiazepines from an outside clinic. Objective - Vital Signs Vital signs: Vital Signs Temp Pulse 86 04/16/19 14:18 Resp 16 04/16/19 14:18 BP 115/75 04/16/19 14:18 Pulse Ox 100 04/16/19 14:18 Intake & Output 04/16/19 04/17/19 04/17/19 18:59 06:59 18:59 Weight 58.967 kg - Exam Physical Examinations : -Constitutiona : Cooperative , not in acute distress . -HEENT : nech : supple , no Lymphadenopathy , normal thyroid size . : eyes : no ptosis , no icterus, no photophobia . : ENT : normal of hearing , normal oropharynx , no Thrush . - Respiratory : Chest clear to auscultations Bilaterally , no wheezing , no Rhonchi . - Cardiovascula : regular rate and rhythem , S1 , S2 , no S3 , no S4. - Gastrointestina : abdomen soft no tenderness , bowel sounds , no organomegally . - Genitourinary : Defferred . - neurologic : Cranial nerve II to XII intact , no focal neurological deffecit . -psychatric : alert , oriented X 3 , appropriate affect , intact judgment and insight . -Lymphatic : no Lymphadenopathy . - musculoskeltal : Cervical Spine motor stregnth in the deltoid and biceps, normal right side , normal Left side motor stregnth biceps and the wrist extensors normal right side ,normal left side . motor stregnth in the triceps muscle . normal Right side , normal Left side deep tendon reflexes normal at the biceps , normal at Brachioradialis , normal at triceps. Multiple trigger points identified on the left side suprascapular and infrascapular area, Multiple trigger point identified on the left side shoulder blade area and thoracic paravertebral muscles on the left side Lumber spine moter stegnth lower extremities ,thigh and legs 5/5 Right side , 5/5 Left side Assessment and Plan Plan: Assessment and plan=1 myofascial pain syndrome left side supra scapular, and infrascapular area, and shoulder blade area and thoracic paraspinal muscles on the left side, patient could benefit from repeat trigger point injections at the area mentioned above, also patient could benefit from muscle relaxant Flexeril 10 mg daily at bedtime - PQRS measures = - Patient's medications are documented in the chart. -Tobacco use is positive and counseling.Given. -Patient's has not received pneumococcal vaccine. -Advanced care planning discussed, patient not eligible. -Opiate contract not signed. -Pain positive and follow-up visit/procedure is scheduled. -Patient's blood pressure measured [ 115/75 ] , and documented in the record ,and patient will follow up with the primary care. -Patient's weight was measured and body mass index [ 23] within the normal limits and counseling was done. and patient instructed to follow-up with the primary care physician. -Patient was not identified as an unhealthy alcohol user Time with Patient: Less than 30
== END | disposition home or self-care (01) ==
LOC: PNWHC3 13:27
PROVIDERS: ATTEND Specialist
DX: M79.18 Myalgia, other site (principal); M54.2 Cervicalgia; M25.512 Pain in left shoulder; Z79.891 Long term (current) use of opiate analgesic; Z79.899 Other long term (current) drug therapy
CPT/HCPCS: 99211

== ENCOUNTER 2019-04-22 09:24 | Day surgery (SDC) | payer MEDICARE, OTHER ==
[2019-04-19 10:19] VITALS: BMI 21.0
[2019-04-22 10:02] VITALS: TEMP 97.7
[2019-04-22 11:34] VITALS: RESP 16
[2019-04-22 11:36] VITALS: BP 155/76; PULSE 78
--- NOTE | 2019-04-22 15:38 | P.PCN ---
Date of Procedure: 04/22/19 Procedure(s) Performed: Preoperative Diagnosis: myofascial pain syndrome of left cervical paraspinals, thoracic paraspinals, trapezius, infrascapular region Postoperative diagnosis: Same Anesthesia: Local Surgeon: Cindy Littlejohn MD Indications for procedure: This is a patient with myofascial pain and palpable trigger points in above- mentioned muscles. The patient consents for an injection after an explanation of risks including but not limited to bleeding and infection, benefits, and alternatives and the patient has signed a consent form indicating understanding of all of them. Description of procedure: After informed consent was obtained the patient's back was sterilely prepped in the usual fashion with alcohol swab. 9 trigger points were identified via palpation of the indicated muscles and marked sterilely. Each trigger point was injected with a 25-gauge half inch needle, with 1-2 mL of solution consisting of ropivacaine 0.5%. A total of 15 mL was used. The patient's vital signs were stable afterwards and the procedure was tolerated well. Patient was discharged home with follow-up instructions.
== END 2019-04-22 11:35 | disposition home or self-care (01) ==
LOC: ORPAIN 09:24
PROVIDERS: ATTEND Anesthesiology
DX: M79.18 Myalgia, other site (principal); Z79.891 Long term (current) use of opiate analgesic; Z79.899 Other long term (current) drug therapy; Z72.0 Tobacco use
CPT/HCPCS: 20553

== ENCOUNTER 2019-05-16 07:35 | Day surgery (SDC) | payer MEDICARE, OTHER ==
[2019-05-15 12:17] VITALS: BMI 22.1
[~2019-05-16 07:35] MED LIST changes: +BUPIVACAINE (PF) 0.5% 30 ML VIAL ONE; +TRIAMCINOLONE ACETONIDE 40 MG/ML 1 ML VIAL ONE
[2019-05-16 08:05] VITALS: TEMP 97.2
[2019-05-16 09:24] VITALS: BP 155/64; PULSE 82; RESP 15
--- NOTE | 2019-05-16 10:04 | P.PCN ---
Date of Procedure: 05/16/19 Procedure(s) Performed: Preoperative Diagnosis: myofascial pain syndrome of left cervical paraspinals, thoracic paraspinals, trapezius, infrascapular region Postoperative diagnosis: Same Anesthesia: Local Surgeon: Cindy Littlejohn MD Indications for procedure: This is a patient with myofascial pain and palpable trigger points in above- mentioned muscles. The patient consents for an injection after an explanation of risks including but not limited to bleeding and infection, benefits, and alternatives and the patient has signed a consent form indicating understanding of all of them. Description of procedure: After informed consent was obtained the patient's back was sterilely prepped in the usual fashion with alcohol swab. 9 trigger points were identified via palpation of the indicated muscles and marked sterilely. Each trigger point was injected with a 25-gauge half inch needle, with 1-2 mL of solution consisting of ropivacaine 0.5% mixed with Kenalog 40 mg. A total of 15 mL was used. The patient's vital signs were stable afterwards and the procedure was tolerated well. Patient was discharged home with follow-up instructions.
== END 2019-05-16 09:35 | disposition home or self-care (01) ==
LOC: ORPAIN 07:35
PROVIDERS: ATTEND Anesthesiology
DX: M79.18 Myalgia, other site (principal); M25.512 Pain in left shoulder; Z88.0 Allergy status to penicillin; Z90.710 Acquired absence of both cervix and uterus
CPT/HCPCS: 20553; J3301

== ENCOUNTER → 2019-12-18 | Outpatient (CLI) | payer MEDICARE, OTHER ==
[2019-12-18 13:58] VITALS: BP 110/73; PULSE 70; RESP 18; TEMP 98.8
--- NOTE | 2019-12-19 19:55 | P.PAINPG ---
Subjective Progress Note Date: 12/18/19 This is a follow-up visit for this 59 years old female with a chronic history of severe neck pain, with radiations to the shoulders and upper extremity bilaterally more prominent on the left side, the patient had an MRI of the cervical spine done in January 2019 and it showed that she had cervical degene rative disc disease at C5 6, and C6 7 levels, patient had a trigger point injection done previously and she had good results with it, currently she is complaining of severe neck pain with radiation to the shoulder blade area, and also she had numbness and tingling sensation radiated from the wrist to the fingers, she reported that the numbness and tingling sensation in her hand 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 -HEENT : nech : supple , no Lymphadenopathy , normal thyroid size . : eyes : no ptosis , no icterus, no photophobia . : ENT : normal of hearing , normal oropharynx , no Thrush . - Respiratory : Chest clear to auscultations Bilaterally , no wheezing , no Rhonchi . - Cardiovascula : regular rate and rhythem , S1 , S2 , no S3 , no S4. - Gastrointestina : abdomen soft no tenderness , bowel sounds , no organomegally . - Genitourinary : Defferred . - neurologic : Cranial nerve II to XII intact , no focal neurological deffecit . -psychatric : alert , oriented X 3 , appropriate affect , intact judgment and insight . -Lymphatic : no Lymphadenopathy . - musculoskeltal : Cervical Spine motor stregnth in the deltoid and biceps, normal right side , normal Left side motor stregnth biceps and the wrist extensors normal right side ,normal left side . motor stregnth in the triceps muscle . normal Right side , normal Left side deep tendon reflexes normal at the biceps , normal at Brachioradialis , normal at triceps. cervical facet loading test= Positive Bilaterally Spurling test= positive bilaterally. Neck distraction test= positive bilaterally. Ramsey sign= positive bilaterally. Multiple trigger point on that front in the cervical paraspinal muscles Lumber spine moter stegnth lower extremities ,thigh and legs 5/5 Right side , 5/5 Left side - Constitutional Constitutional Comment(s): MRI of cervical spine done in January 2019 [facility]= degenerative disc disease at C56 and C6 7 levels Assessment and Plan Plan: Assessment and plan=1-cervical degenerative disc disease. 2-myofascial pain syndrome and cervical paraspinal muscles. 3-rule out carpal tunnel syndrome bilateral upper extremity, patient will be referred for orthopedic surgeons for evaluation for possible Carpal tunnel release. Patient is scheduled to have cervical epidural steroid injection at C7-T1, and trigger point injections cervical paraspinal muscles bilaterally. Patient will continue her medication as prescribed by her primary care. Time with Patient: Less than 30 PQRS Measure Charge Sheet Measure #130: Documentation of Current Meds in Medical Chart: Patient's medications documented in chart Measure #226: Tobacco Use: Screen & Cessation Intervention: Pt screened for tobacco use AND intervention given Measure #111: Pneumonia Vaccination: Pneumococcal vaccine NOT administered or previously given Measure #47: Advance Care Plan: Advance care planning discussed & documented, pt chose/unable to give Measure #412: Opioid Treatment Agreement: No documentation of signed opioid treatment agreement Measure #408: Opioid Therapy Follow-up Evaluation: Patient had NO f/u eval minimum every 3 months during opioid therapy Measure #317: Preventitive Care & Scrn High Bld Press & F/U: Normal blood pressure, f/u not required Measure #128: Body Mass Index (BMI) Screening & Follow-up: BMI documented within normal parameters Measure #131: Pain Assessment & Follow-up: Pain positive & plan documented, Follow-up scheduled Measure #431: Unhealthy Alcohol Use Preventative Care & Scrn: Patient not identified as an unhealthy alcohol user PQRS Narrative: Smoking Status Current every day smoker Blood Pressure 110/73 Pain Intensity [Right Shoulder 5 ] Pain Intensity [Left Shoulder] 9 Scale Used Numeric (1 - 10) Hx Alcohol Use (MH) No Home Medications: Ambulatory Orders PARoxetine HCL [Paxil] 40 mg PO DAILY 06/16/16 carBAMazepine [carBAMazepine ER] 200 mg PO BID 06/16/16 traZODone HCL [Desyrel] 100 mg PO HS PRN 06/16/16 diazePAM [Valium] 5 mg PO DAILY 04/16/18 HYDROcodone/APAP 10-325MG [Henry 10-325] 1 tab PO QID 12/06/18 Loratadine [Claritin] 10 mg PO DAILY 12/06/18 Meclizine [Antivert] 25 mg PO BID PRN 12/06/18 Phentermine HCl [Adipex P] 15 mg PO DAILY 04/22/19 Atorvastatin [Lipitor] 10 mg PO DAILY 10/18/19 Controlled Substance Measures - Controlled Substance Measures Is patient prescribed a controlled substance at discharge?: No
== END | disposition home or self-care (01) ==
LOC: PNWHC3 13:27
PROVIDERS: ATTEND Specialist
DX: M50.322 Other cervical disc degeneration at C5-C6 level (principal); M79.18 Myalgia, other site; F17.200 Nicotine dependence, unspecified, uncomplicated; Z79.899 Other long term (current) drug therapy; Z79.891 Long term (current) use of opiate analgesic
CPT/HCPCS: 99211

== ENCOUNTER → 2020-01-07 | Day surgery (SDC) | payer MEDICARE, OTHER ==
[~2020-01-07] MED LIST changes: -BUPIVACAINE (PF) 0.5% 30 ML VIAL ONE; +DEXAMETHASONE SOD PHOSPHATE 10 MG/ML 1 ML VIAL ONE; +IOPAMIDOL M200 10 ML VIAL ONE; +IV FLUID CONTINUATION 1,000 ML IV ONE; +LACTATED RINGERS 1,000 ML IV ONE; +LIDOCAINE 1% (10MG/ML) FOR IV START INTRADERMA ONE; +MIDAZOLAM 2 MG/2 ML VIAL ONE; +ROPIVACAINE 5MG/ML 20ML VIAL ONE; -TRIAMCINOLONE ACETONIDE 40 MG/ML 1 ML VIAL ONE; +fentaNYL (PF) 50 MCG/ML 2 ML AMP ONE
[2020-01-07 09:35] VITALS: TEMP 97.9
--- NOTE | 2020-01-07 10:28 | P.PCN ---
Date of Procedure: 01/07/20 Procedure(s) Performed: . PROCEDURE 1. Cervical epidural steroid injection under fluoroscopic guidance, C7-T1 (fluoroscopy images available in the radiology department ) 2. Cervical epidurogram. 3. Trigger point injections cervical paraspinal muscles 4 trigger point injected, 2 on the right side cervical paraspinal muscles and 2 on the left side cervical paraspinal muscles. PREOPERATIVE DIAGNOSIS: 1- Cervical Degenerative Disc Diseases 2-myofascial pain syndrome cervical paraspinal muscles POSTOPERATIVE DIAGNOSIS: : 1- Cervical Degenerative Disc Diseases , 2-myofascial pain syndrome and cervical paraspinal muscles ANESTHESIA: Local anesthesia with lidocaine 1 % , and moderate sedation, with Versed 2 mg and Fentanyl 100 mcg. EBL 0 PROCEDURE INDICATION: The patient with neck pain and radiculitis unresponsive to conservative treatment consents for procedure. PROCEDURE DESCRIPTION / TECHNIQUE: The patient was seen and identified in the preoperative area. Risks, benefits, complications, including but not limited to infections ,bleeding , allergic reactions to the medications ,and not complete pain releife, and alternatives were discussed with the patient, the patient agreed to proceed with the procedure and signed the consent. Patient was taken to the OR and time out was completed. The patient was placed in the prone position on the procedure table. A pillow was placed under the patients chest to increase the cervical interlaminar space. The cervical area was prepped and draped in the usual sterile fashion. Vital signs were closely monitored during the procedure. Conscious sedation was used during the procedure to decrease patients anxiety. Using anterior-posterior fluoroscopy, the C7-T1 interlaminar space was identified and the skin over this site was marked and then infiltrated with 1% lidocaine subcutaneously. Subsequently, a 20-gauge 3-1/2-inch Tuohy epidural needle was inserted and advanced toward the epidural space by means of the ``hanging-drop technique and guided by AP and lateral fluoroscopy. The correct needle position in the epidural space was verified with the injection of 2 mL of the water soluble contrast dye Isovue-200 and observing an excellent epidurogram with the epidural spread of the dye, after negative aspiration for b lood and CSF and in the absence of paresthesias. Again after negative aspiration, mixture containing 20 mg Dexamethasone and 2 ml of preservative- free normal saline injected and a washout of epidurogram was seen. Needle was withdrawn intact. After that the trigger point which was identified in the preop holding area ,2 on the right side cervical paraspinal muscles ,and 2 on the left side cervical paraspinal muscles each one of them injected with ropivacaine 0.5% 2 mL, using 25-gauge needle injection done after negative aspiration under was no paresthesia during the injection, injection done under sterile technique after the area was prepped with Betadine 3 Complications= none. Disposition= patient was placed in supine position and transferred to the recovery room area in stable condition and there was no evidence of upper or lower extremity motor or sensory deficit after the procedure patient was discharged from recovery room after discharge criteria met and home discharge instructions was given by the staff and patient will follow with the pain clinic in 2-4 weeks
[2020-01-07 10:44] VITALS: BP 113/72; PULSE 75; RESP 17
--- NOTE | 2020-01-07 10:48 | FL ---
EXAMINATION TYPE: FL guided pain mgmt statistic DATE OF EXAM: 01/07/2020 CLINICAL HISTORY: Neck pain. TECHNIQUE: Fluoroscopy. COMPARISON: None. FINDINGS: Fluoroscopic guidance was provided during pain relief procedure performed by Dr. Silvestre . A total of 3 seconds of fluoroscopic time was utilized during the procedure and 1 spot intraoperat samm image is are acquired. Single image acquired shows needle localization at the cervicothoracic ju nction. IMPRESSION: As Above.
== END ==
LOC: ORPAIN 08:34
PROVIDERS: ATTEND Specialist
DX: M50.10 Cervical disc disorder with radiculopathy, unspecified cervical region (principal); M79.18 Myalgia, other site; Z88.0 Allergy status to penicillin; Z90.710 Acquired absence of both cervix and uterus; Z91.09 Other allergy status, other than to drugs and biological substances
CPT/HCPCS: 20553; 62321; J2250; J1100; J3010; Q9966; J2795; 99152

== ENCOUNTER → 2020-05-26 | Outpatient (CLI) | payer MEDICARE, OTHER ==
[2020-05-26 14:00] LABS: Basophils # (A) 0.1 k/uL (0-0.2); Basophils % (A) 1 %; Eosinophils # (A) 0.1 k/uL (0-0.7); Eosinophils % (A) 2 %; HCT 45.3 % (34.0-46.0); HGB 14.9 gm/dL (11.4-16.0); Lymphocytes # (A) 1.8 k/uL (1.0-4.8); Lymphocytes % (A) 35 %; MCHC 32.9 g/dL (31.0-37.0); MCV 94.1 fL (80.0-100.0); Mean Platelet Volume 7.3; Monocytes # (A) 0.4 k/uL (0-1.0); Monocytes % (A) 8 %; Neutrophils # (A) 2.8 k/uL (1.3-7.7); Neutrophils % (A) 53 %; Platelet Count 253 k/uL (150-450); RBC 4.82 m/uL (3.80-5.40); WBC 5.2 k/uL (3.8-10.6)
[2020-05-26 14:15] LABS: Appearance,Urine Cloudy (Clear); Bilirubin,Urine Negative (Negative); Blood,Urine Negative (Negative); Color,Urine Yellow; Glucose,Urine (UA) Negative (Negative); Ketones,Urine Negative (Negative); Leukocyte Esterase,Urine Negative (Negative); Mucus,Urine Occasional /hpf; Nitrite,Urine Negative (Negative); Protein,Urine Trace (Negative); RBC,Urine 1 /hpf (0-5); Specific Gravity,Urine 1.029 (1.001-1.035); Squamous Epithelial Cell,Urine 22 /hpf (0-4); Urobilinogen,Urine <2.0 mg/dL (<2.0); WBC,Urine 4 /hpf (0-5)
[2020-05-26 17:56] LABS: INR 0.95 (0.90-1.11); Partial Thromboplastin Time 25.7 sec (23.5-31.0); Prothrombin Time 10.3 sec (9.9-11.9)
[2020-05-27 01:08] LABS: African American GFR (CKD) 92.9 (60.0-200.0); Albumin 4.4 g/dL (3.80-4.90); Albumin/Globulin Ratio 2.32 (1.60-3.17); Anion Gap 10.4 mmol/L (4.00-12.00); Calcium 9.1 mg/dL (8.7-10.3); Carbon Dioxide 26.6 mmol/L (21.6-31.8); Globulin 1.9 g/dL (1.6-3.3); Non-African American GFR(CKD) 80.1 (60.0-200.0); Potassium 4.5 mmol/L (3.5-5.5); Total Bilirubin 0.2 mg/dL (0.3-1.2); Total Protein 6.3 g/dL (6.2-8.2)
== END | disposition home or self-care (01) ==
LOC: LABWHC1 12:22
PROVIDERS: ATTEND Internal Medicine
DX: Z01.812 Encounter for preprocedural laboratory examination (principal); Z20.822 Contact with and (suspected) exposure to COVID-19
CPT/HCPCS: 80053; 85025; 85610; 85730; 81001; 93005; 36415; U0003; U0005